=== PATIENT | female | born 1940 | race Caucasian/White ===

== ENCOUNTER 2016-11-14 14:19 | Emergency (ER) | payer MEDICARE, BC ==
--- NOTE | 2016-11-14 15:02 | EDM.PDOC ---
ED HPI GENERAL MEDICAL PROBLEM - General Chief Complaint: General Stated Complaint: right eye shut Time Seen by Provider: 11/14/16 14:29 Source of Information: Reports: Patient History Limitations: Reports: No Limitations - History of Present Illness INITIAL COMMENTS - FREE TEXT/NARRATIVE: Patient having a procedure at the dentist for putting a crown on the left lower side. She received novacaine and she states as soon as she did her right eye began to close. She has no complaints of weakness anywhere, speech is normal, her two complaints are right eye closing and an elevated blood pressure. Denies all other symptoms. Onset: Today, Sudden Location: Reports: Face Severity: Moderate Associated Symptoms: Reports: Other (elevated blood pressure) - Related Data Allergies Allergy/AdvReac Type Severity Reaction Status Date / Time No Known Drug Allergies Allergy Other Verified 11/14/16 14:43 Home Meds: Home Meds HCTZ/Triamterene [Maxzide 50-75 MG] 50 mg PO DAILY 12/18/13 [History] Simvastatin [Simvastatin] 10 mg PO DAILY 12/18/13 [History] Past Medical History Cardiovascular History: Reports: High Cholesterol, Hypertension Social & Family History - Tobacco Use Smoking Status *Q: Unknown Ever Smoked ED ROS GENERAL - Review of Systems Review Of Systems: See Below Constitutional: Reports: No Symptoms HEENT: Reports: Other (right eye closed and hard to keep open) Respiratory: Reports: No Symptoms Cardiovascular: Reports: No Symptoms Endocrine: Reports: No Symptoms GI/Abdominal: Reports: No Symptoms : Reports: No Symptoms Musculoskeletal: Reports: No Symptoms Skin: Reports: No Symptoms Neurological: Reports: No Symptoms Psychiatric: Reports: No Symptoms Hematologic/Lymphatic: Reports: No Symptoms Immunologic: Reports: No Symptoms ED EXAM, GENERAL - Physical Exam Exam: See Below Exam Limited By: No Limitations General Appearance: Alert, WD/WN, Mild Distress Eye Exam: Bilateral Eye: EOMI, PERRL, Other (visual check 20/40 right, 20/30 left with correction) Ears: Normal TMs, Other (visual check is normal) Nose: Normal Inspection Throat/Mouth: Normal Inspection, Normal Oropharynx Head: Atraumatic, Normocephalic Neck: Normal Inspection, Supple, Non-Tender, Full Range of Motion Respiratory/Chest: No Respiratory Distress, Lungs Clear, Normal Breath Sounds, No Accessory Muscle Use, Chest Non-Tender Cardiovascular: Normal Peripheral Pulses, Regular Rate, Rhythm, No Edema, No Rub GI/Abdominal: Normal Bowel Sounds, Soft, Non-Tender, No Organomegaly, No Distention Extremities: Normal Inspection, Normal Range of Motion, Non-Tender, No Pedal Edema, Normal Capillary Refill Neurological: Alert, Oriented, CN II-XII Intact, Normal Cognition, Normal Gait, Normal Reflexes, No Motor/Sensory Deficits Psychiatric: Normal Affect, Normal Mood Skin Exam: Warm, Dry, Intact, Normal Color, No Rash Lymphatic: No Adenopathy Course - Vital Signs Last Recorded V/S: Last Vital Signs Temp 35.9 C 11/14/16 14:25 Pulse 65 11/14/16 14:25 Resp 18 11/14/16 14:25 BP 164/74 H 11/14/16 14:25 Pulse Ox 97 11/14/16 14:25 - Orders/Labs/Meds Orders: Active Orders 24 hr Category Date Time Status Head wo Cont [CT] Stat Exams 11/14/16 14:30 Ordered - Re-Assessments/Exams Free Text/Narrative Re-Assessment/Exam: 11/14/16 14:52 CT of head ordered 11/14/16 15:49 Discharge blood pressure 137/75 Departure - Departure Time of Disposition: 15:48 Disposition: Home, Self-Care 01 Condition: Good Clinical Impression: Cranial nerve impairment - Discharge Information Forms: ED Department Discharge Additional Instructions: Your eyelid function should return once the novacaine wears off. If it does not , I would suggest returning to the emergency room You should call your eye doctor for any recommendations he/she may have This is likely NOT an allergic reaction. Likely the anesthesia got into additional nerves and salivary glands If you have any questions or concerns, call the emergency room. Follow up with your primary provider with any additional symptoms - Problem List & Annotations (1) Cranial nerve impairment SNOMED Code(s): 24657691 Code(s): G52.9 - CRANIAL NERVE DISORDER, UNSPECIFIED Status: Acute Priority: Medium Current Visit: Yes - Problem List Review Problem List Initiated/Reviewed/Updated: Yes - My Orders Last 24 Hours: My Active Orders 11/14/16 14:30 Head wo Cont [CT] Stat - Assessment/Plan Last 24 Hours: My Active Orders 11/14/16 14:30 Head wo Cont [CT] Stat Assessment:: cranial nerve III impairment Plan: Your eyelid function should return once the novacaine wears off. If it does not , I would suggest returning to the emergency room You should call your eye doctor for any recommendations he/she may have This is likely NOT an allergic reaction. Likely the anesthesia got into additional nerves and salivary glands If you have any questions or concerns, call the emergency room. Follow up with your primary provider with any additional symptoms
== END 2016-11-14 15:53 | disposition home or self-care (01) ==
LOC: VM.ED 14:19
DX: K91.89 Other postprocedural complications and disorders of digestive system (principal); Z98.818 Other dental procedure status; I10 Essential (primary) hypertension; E78.00 Pure hypercholesterolemia, unspecified; Z79.899 Other long term (current) drug therapy; H53.9 Unspecified visual disturbance
CPT/HCPCS: 70450; 99284; 99284-GF

== ENCOUNTER 2024-10-07 11:29 | Emergency (ER) | payer MEDICARE, BC ==
[2024-10-07] MEDS ORDERED: Sodium Chloride 0.9% 10 ML Syringe FLUSH PRN (11:56)
[2024-10-07] MEDS: Ondansetron 4 MG/2 ML SDV IVPUSH ONE ×2 (12:04→12:45)
== END 2024-10-07 14:50 | disposition short-term general hospital (02) ==
LOC: VM.ED 11:29 → SUPCPDRO 11:29 → VM.ED 14:50
DX: S82.851A Displaced trimalleolar fracture of right lower leg, initial encounter for closed fracture (principal); I12.9 Hypertensive chronic kidney disease with stage 1 through stage 4 chronic kidney disease, or unspecified chronic kidney disease; N18.9 Chronic kidney disease, unspecified; E78.00 Pure hypercholesterolemia, unspecified; Z90.710 Acquired absence of both cervix and uterus; Z79.899 Other long term (current) drug therapy; W10.9XXA Fall (on) (from) unspecified stairs and steps, initial encounter
CPT/HCPCS: 29515; 73590; 73610; 96374; 96375; 96376; 99285; J2270; J2405; J2765; J1171